=== PATIENT | female | born 1970 | race Caucasian/White ===

== ENCOUNTER 2018-06-27 06:44 | Day surgery (SDC) | payer OTHER ==
[~2018-06-27 06:44] MED LIST: BIOTIN1 MG PO; GABAPENTIN400 MG PO; GABAPENTIN600 MG PO; IRON1 TAB PO; METFORMIN HCL500 MG PO; OSTERA TABLET1 EACH PO; PERCOCET 5/3251 TAB PO; PNEU16DI2 IJ; STRESS B-COMPL1 EACH PO
== END 2018-06-27 12:10 | disposition home or self-care (01) ==
LOC: AMB-ENDOS 06:44
DX: K57.32 Diverticulitis of large intestine without perforation or abscess without bleeding (principal); Z12.11 Encounter for screening for malignant neoplasm of colon

== ENCOUNTER 2021-07-22 19:25 | Emergency (ER) | payer OTHER ==
[~2021-07-22] VITALS: Ht 165.1 cm; Wt 87.5 kg
[2021-07-22] MEDS ORDERED: GLIMEPIRIDE2 M1 (19:44)
[2021-07-22] MEDS ORDERED: JENTADUETO 2.51 EAC2 (19:44)
[2021-07-22] MEDS ORDERED: DUI500 PO (23:00)
== END 2021-07-22 23:06 | disposition home or self-care (01) ==
LOC: ER 19:25
DX: S90.121A Contusion of right lesser toe(s) without damage to nail, initial encounter (principal); W22.03XA Walked into furniture, initial encounter; Y93.9 Activity, unspecified; Y92.013 Bedroom of single-family (private) house as the place of occurrence of the external cause

== ENCOUNTER 2021-07-26 20:05 | Emergency (ER) | payer OTHER ==
[~2021-07-26] VITALS: Ht 165.1 cm; Wt 87.5 kg
[~2021-07-26 20:05] MED LIST changes: +DUI500 PO; +GLIMEPIRIDE2 M1; +JENTADUETO 2.51 EAC2
[2021-07-26] MEDS ORDERED: BACTRIM 400-801 EACH PO (21:45)
== END 2021-07-26 21:56 | disposition home or self-care (01) ==
LOC: ER 20:05
DX: S90.424A Blister (nonthermal), right lesser toe(s), initial encounter (principal); X58.XXXA Exposure to other specified factors, initial encounter; Y93.9 Activity, unspecified; Y92.9 Unspecified place or not applicable; Y99.9 Unspecified external cause status; Z88.6 Allergy status to analgesic agent

== ENCOUNTER 2021-07-28 15:31 | Outpatient (CLI) | payer OTHER ==
[~2021-07-28 15:31] MED LIST changes: +BACTRIM 400-801 EACH PO
== END 2021-07-28 15:43 | disposition home or self-care (01) ==
LOC: LAB 15:31
PROVIDERS: ATTEND Specialist
DX: L02.611 Cutaneous abscess of right foot (principal)

== ENCOUNTER 2022-01-18 10:12 | Emergency (ER) | payer OTHER ==
[~2022-01-18] VITALS: Ht 165.1 cm; Wt 84.8 kg
== END 2022-01-18 14:29 | disposition left against medical advice (07) ==
LOC: ER 10:12
DX: Z53.21 Procedure and treatment not carried out due to patient leaving prior to being seen by health care provider (principal)

== ENCOUNTER → 2024-06-09 | Emergency (ER) | payer OTHER ==
[~2024-06-09] VITALS: Ht 167.6 cm; Wt 74.8 kg
[~2024-06-09] MED LIST changes: +0.9 % SODIUM CHLORIDE 1,000 ML IV STA; +ONDANSETRON HCL 2 MG/ML VIAL IV STA; +OZEMPIC2 MG/0.75
[2024-06-09 08:57] LABS: HEMATOCRIT 40.2 % (36.0-45.00); HEMOGLOBIN 13.4 g/dL (12.0-15.00); MEAN CELL VOLUME 92.6 fL (80.00-100.00); MEAN CORPUSCULAR HEMOGLOBIN 30.8 pg (27.00-32.0); MEAN CORPUSCULAR HGB CONC 33.3 g/dl (32.0-36.0); PLATELET COUNT 287 K/uL (150-450); RED BLOOD COUNT 4.34 M/uL (4.00-6.00); RED CELL DISTRIBUTION WIDTH 13.6 % (11.5-14.5)
[2024-06-09 08:57] LABS: PH,URINE 6.5 (5.0-8.0); URINE APPEARANCE Clear; URINE BILIRRUBIN Negative (NEGATIVE); URINE BLOOD Negative; URINE COLOR Yellow; URINE KETONE 15 (NEGATIVE); URINE LEUKOCYTE Negative; URINE NITRATE Negative; URINE PROTEIN Negative (NEGATIVE)
[2024-06-09 08:58] LABS: URINE BACTERIA 8.5 uL (0.0-1933); URINE RBC 2.6 uL (0.0-20.8)
[2024-06-09 09:08] LABS: URINE GLUCOSE >=1000 MG/DL (NEGATIVE)
[2024-06-09 09:21] LABS: ALBUMIN 3.8 gm/dL (3.4-5.0); BILIRUBIN TOTAL 0.42 mg/dL (0.3-1.2); CALCIUM 9.5 mg/dL (8.5-10.1); CREATININE SERUM 0.65 mg/dL (0.55-1.02); GFR 95.72; GLOBULINA 4.2 G/DL (2.4-3.5); POTASSIUM 3.69 mEq/L (3.5-5.1)
== END | disposition home or self-care (01) ==
LOC: ER 07:41
PROVIDERS: Emergency Medicine
DX: K29.70 Gastritis, unspecified, without bleeding (principal); Z88.6 Allergy status to analgesic agent; Z88.8 Allergy status to other drugs, medicaments and biological substances